=== PATIENT | female | born 1955 | race Caucasian/White ===

== ENCOUNTER 2019-05-25 12:53 | Observation (INO) ==
--- NOTE | 2019-05-25 13:43 | Diag Imaging Result Doc PS360 ---
EXAM: CT HEAD W/O CONTRAST HISTORY: ams TECHNIQUE: CT head without contrast COMPARISON: None. FINDINGS: No parenchymal hemorrhage. No epidural or subdural hematoma. No subarachnoid hemorrhage. Mild chronic microvascular ischemic changes. No mass identified on this noncontrasted exam. No hydrocephalus. No sinus opacification. IMPRESSION: No hemorrhage. Mild chronic ischemic changes. This exam was performed using automated exposure control, adjustment of mA or kV according to patient size, and/or use of iterative reconstruction technique. Electronically signed by David Ortiz 05/25/2019 1:40 PM
[2019-05-25 13:48] LABS: URINE SOURCE CLEAN CATCH
--- NOTE | 2019-05-25 13:50 | EKG Report ---
Test Performed on : 05/25/2019 1:40:55 PM Test Reason : AMS Blood Pressure : / mmHG Vent. Rate : 066 BPM Atrial Rate : 066 BPM P-R Int : 138 ms QRS Dur : 078 ms QT Int : 402 ms P-R-T Axes : 008 025 011 degrees QTc Int : 421 ms Normal sinus rhythm. Normal ECG No previous ECGs available Unconfirmed Result
[2019-05-25 13:54] LABS: BILIRUBIN URINE NEGATIVE (NEGATIVE); BLOOD URINE NEGATIVE (NEGATIVE); COLOR STRAW; GLUCOSE URINE TRACE mg/dL (NEGATIVE); KETONE URINE NEGATIVE (NEGATIVE); LEUKOCYTES URINE NEGATIVE (NEGATIVE); NITRITE URINE NEGATIVE (NEGATIVE); PROTEIN URINE TRACE mg/dL (NEGATIVE); SP GRAVITY URINE 1.011; TURBIDITY URINE CLEAR (CLEAR); UR EPITHELIAL CELLS <10 /HPF (<10); URINE BACTERIA NEGATIVE /HPF; URINE RBC <10 /HPF (<10); URINE WBC <10 /HPF (<10); UROBILINOGEN URINE NORMAL (NORMAL)
[2019-05-25 13:56] LABS: EOS# 0.01 X1000 (0.0-0.7); EOS% 0.2 % (0.0-10.0); HEMATOCRIT 35.4 % (37.0-47.0); HEMOGLOBIN 11.9 g/dL (12.0-16.0); IMM GRAN# 0.03 X1000 (0.0-0.04); IMM GRAN% 0.6 % (0.0-0.5); LYMPH% 8.2 % (20.5-51.1); MCH 33.6 PG (27-31); MCHC 33.6 g/dL (33-37); MONO# 0.39 X1000 (0.11-0.59); MPV 10.4 FL (7.4-10.4); NEUT# 4.02 X1000 (1.4-6.5); PLT 243 X1000 (130-400); RBC 3.54 XMIL (4.2-5.4); RDW 15.2 % (11.5-14.5); WBC 4.85 X1000 (4.8-10.8)
[2019-05-25 14:07] LABS: AGAP 14; ALB/GLOB RATIO 1.4; ALBUMIN 3.9 g/dL (3.5-5.0); ALKALINE PHOSPHATASE 81 U/L (32-104); BUN 15 mg/dL (8-22); CHLORIDE 99 mmol/L (98-107); CK PROFILE 40 U/L (24-173); COSMO 278; CREATININE 0.7 mg/dL (0.5-0.9); ESTIMATED GFR > 60; GLUCOSE 120 mg/dL (70-104); GOT 22 U/L (10-30); GPT 12 U/L (10-36); POTASSIUM 4.1 mmol/L (3.5-5.1); SODIUM 138 mmol/L (136-145); TCO2 25 mmol/L (25-35); TOTAL BILIRUBIN 0.36 mg/dL (0.20-1.00); TOTAL PROTEIN 6.6 g/dL (6.3-8.3)
[2019-05-25 14:11] LABS: INR 1.09
[2019-05-25 14:12] LABS: PTT 26.6 Seconds (22.3-41.8)
--- NOTE | 2019-05-25 14:40 | Diag Imaging Result Doc PS360 ---
CHEST-PORTABLE - 05/25/2019 INDICATION: ams COMPARISON: 02/24/2019 FINDINGS: There is essentially identical appearing complete opacification of the majority of the left lung. This is about 75% opacified. Likely a large pleural effusion. The right lung is clear. No mediastinal shift. Heart size is top normal. IMPRESSION: Significant opacification of the left lung identical to prior. Electronically signed by Dash Garcia 05/25/2019 2:38 PM
--- NOTE | 2019-05-25 15:30 | PROVIDER DOCUMENTATION ---
This chart was entered by Stephani Albarado Scribe, acting as scribe for Phil Willingham MD. HPI-General Adult - General Chief Complaint: Altered Mental Status Stated Complaint: CANCER PT-DR TOSCANO SENT HER Time Seen by Provider: 05/25/19 13:46 Source: patient, family () Allergies/Adverse Reactions: Patient Allergies Allergy/AdvReac Type Severity Reaction Status Date / Time No Known Allergies Allergy Verified 05/25/19 14:06 Home Medications: Home Medication List Medication Instructions Recorded Confirmed Last Taken Type Amlodipine [Norvasc] 10 mg PO DAILY 01/21/13 05/25/19 01/21/19 08:30 History Alprazolam 0.25 mg PO DAILY 02/21/14 05/25/19 01/20/19 22:00 History Lisinopril/Hydrochlorothiazide 1 each PO BID 03/04/16 05/25/19 01/21/19 08:30 History [Lisinopril-Hctz 20-12.5 mg Tab] Rivaroxaban [Xarelto] 10 mg PO DAILY 03/04/16 05/25/19 01/20/19 17:30 History Palbociclib [Ibrance] 125 mg PO DAILY 01/21/19 05/25/19 01/20/19 17:30 History - History of Present Illness -Gen Adult Nature of Presenting Problems: 63 yowf presents to the ed with onset of confusion, nausea, vomiting and BOYKIN this am about 1030. pt went to rehab for shoulder and once home was fine at 1000am then sudden onset of sx at 1030am. pt is seeing dr toscano oncology for breast cancer that mets to lung fluid. pt is having problem with short term memory and still feels fatigued. pt neuro is intact and has had decreased appetite. Location of Pain/Injury: reports: abdomen, generalized (fatigue) Quality of Pain: reports: cramping (abdominal) Severity: reports: moderate Onset/Duration: reports: this morning (1030am) Timing: reports: still present Context/Activities at Onset: reports: light activity Modifying Factors: improves with: nothing Associated Symptoms: reports: fatigue, headaches, malaise, muscle aches, nausea, vomiting, weakness. denies: back/neck pain, chest pain, diarrhea, dizziness, fever/chills, shortness of breath, syncope Similar Symptoms Previously?: Yes Recently seen or treated by another doctor?: Yes (dr toscano oncology) Review of Systems - Adult - REVIEW OF SYSTEMS - ADULT Constitutional: reports: see HPI, fatique. denies: chills, fever Eyes: reports: no symptoms reported Ears, Nose, Mouth & Throat: reports: no symptoms reported Cardiovascular: denies: chest pain, palpitations, syncope Respiratory: denies: cough, shortness of breath, wheezing Gastrointestinal: reports: see HPI, abdominal pain, nausea, poor appetite, vomiting Genitourinary: reports: no symptoms reported Musculoskeletal: reports: see HPI, muscle aches. denies: back pain, neck pain Integumentary: reports: no symptoms reported Neurological: reports: see HPI, headache/migraines, other (confusion). denies: ataxia, dizziness/vertigo, numbness, paresthesia, seizure, slurred speech Psychiatric: reports: no symptoms reported Endocrine: reports: no symptoms reported Hematologic/Lymphatic: reports: no symptoms reported Allergic/Immunologic: reports: no symptoms reported All Other Systems: Reviewed and Negative Past History - Adult - PAST MEDICAL HISTORY-ADULT Review of Records: reports: Old Records Reviewed, Nursing Assessment Review, Medications Reviewed, Social history reviewed & non-contributory. Major Childhood Illnesses: reports: denies history Cardiovascular: reports: blood clots, HTN Respiratory: reports: denies history Gastrointestinal: reports: denies history Obstetrical/Gynecological: reports: denies history Genitourinary: reports: denies history Musculoskeletal: reports: denies history Hand Dominance: Right Handed Neurological: reports: headaches/migraines Psychiatric: reports: anxiety Endocrine/Immune: reports: denies history Other Conditions: reports: other cancer (breast) - PRIOR SURGERIES/PROCEDURES Surgical/Procedure History: reports: breast - IMMUNIZATION STATUS Childhood Immunizations: See Nurse Assessment Flu Vaccine: See Nurse Assessment - FAMILY HISTORY Family History: reviewed, not pertinent - SOCIAL HISTORY Smoking: denies Substance Use: denies Living Situation: family Physical Exam-General - PHYSICAL EXAM-ADULT Initial Vital Signs Reviewed: Yes - CONSTITUTIONAL General Appearance: alert, mild distress - EYES Eyes: PERRL/EOMI, pink conjunctivae - HEAD, EARS, NOSE, MOUTH & THROAT HENMT: dental decay. negative: moist mucous membranes (dry) - NECK Neck: non-tender, full range of motion, supple, normal inspection - RESPIRATORY Respiratory: chest non-tender, lungs clear, normal breath sounds - CARDIOVASCULAR Cardiovascular: normal peripheral pulses, regular rate, rhythm - GASTROINTESTINAL (ABDOMEN) Abdominal Exam: normal bowel sounds, non tender, soft - LYMPHATIC Lymphatic: no adenopathy - MUSCULOSKELETAL Back Exam: normal inspection, no CVA tenderness, no vertebral tenderness Extremity: normal range of motion, non-tender, no pedal edema, no calf tenderness, pelvis stable - SKIN Integumentary: warm/dry, pallor - NEUROLOGIC Neurologic: grossly normal - PSYCHIATRIC Psych/Mental Status: other (short term memory is altered) Progress - PLAN OF CARE/RESULTS Progress/Plan/Lab Results: Vital Signs - 8 hr 05/25/19 12:56 Temperature 97.9 F Pulse Rate 71 Respiratory Rate 18 Blood Pressure 179/114 O2 Sat by Pulse Oximetry 95 Laboratory Results - last 24 hr 05/25/19 05/25/19 05/25/19 13:08 13:25 13:26 WBC 4.85 RBC 3.54 L Hgb 11.9 L Hct 35.4 L MCV 100.0 H MCH 33.6 H MCHC 33.6 RDW Std Deviation 15.2 H Plt Count 243 MPV 10.4 Immature Gran % (Auto) 0.6 H Neut % (Auto) 83.0 H Lymph % (Auto) 8.2 L [place] % (Auto) 8.0 Eos % (Auto) 0.2 Baso % (Auto) 0.0 Immature Gran # (Auto) 0.03 Neut # (Auto) 4.02 Lymph # (Auto) 0.40 L [place] # (Auto) 0.39 Eos # (Auto) 0.01 Baso # (Auto) 0.00 POC Glucose 106 H Urine Source CLEAN CATCH Urine Color STRAW Urine Turbidity CLEAR Urine pH 8.0 Ur Specific [place] 1.011 Urine Protein TRACE A Ur Glucose (Stick) TRACE Ur Ketones (Stick) NEGATIVE Urine Blood NEGATIVE Urine Nitrite NEGATIVE Urine Bilirubin NEGATIVE Urobilinogen Dipstick NORMAL Urine Leukocytes NEGATIVE Urine WBC (Auto) <10 Urine RBC (Auto) <10 U Epithel Cells (Auto) <10 Urine Bacteria (Auto) NEGATIVE Orders Category Date Time Status Cardiac Monitoring DIRECTED Care 05/25/19 13:17 Active Finger Stick Blood Sugar (ED) DIRECTED Care 05/25/19 13:17 Active Oxygen Therapy- ED Nursing DIRECTED Care 05/25/19 13:17 Active Saline Loc NOW Care 05/25/19 13:17 Active CHEST-PORTABLE [RAD] Stat Exams 05/25/19 13:[address] HEAD W/O CONTRAST [CT] Stat Exams 05/25/19 13:18 Completed CBC WITH ELECTRONIC DIFF [HEME] Stat Lab 05/25/19 13:25 Completed CK PROFILE [SP CHEM] Stat Lab 05/25/19 13:25 Received COMPREHENSIVE METABOLIC PANEL [CHEM] Stat Lab 05/25/19 13:25 Received PROTIME WITH INR [COAG] Stat Lab 05/25/19 13:25 Received PTT [COAG] Stat Lab 05/25/19 13:25 Received TROPONIN T Stat Lab 05/25/19 13:25 Received URINALYSIS [URINALYSIS] Stat Lab 05/25/19 13:08 Completed Altered Mental Status Stat Oth 05/25/19 13:17 Ordered EKG [EKG] Stat Ther 05/25/19 13:17 Draft Result Diagrams: 05/25/19 13:25 05/25/19 13:25 - REASSESSMENT Reassessment #1 Time Reassessed: 14:54 (pt is resting in bed) Status: improving - EKG 1 Time of EKG reading by physician:: 13:40 EKG Read and Signed by:: Phil Willingham EKG Interpretation (*Must complete 3 of following elements*): Normal Rate: 66 Rhythm: nsr [place]: normal QRS: normal MO Interval: normal ST Wave: normal - XRAY 1 XRAY: Bilateral XRAY Study: Chest Impression: See EMR Report (CHEST-PORTABLE - 05/25/2019 INDICATION: ams COMPARISON: 02/24/2019 FINDINGS: There is essentially identical appearing complete opacification of the majority of the left lung. This is about 75% opacified. Likely a large pleural effusion. The right lung is clear. No mediastinal shift. Heart size is top normal. IMPRESSION: Significant opacification of the left lung identical to prior. Electronically signed by Dash Garcia 05/25/2019 2:38 PM 05/25/19 5520 Interpreting Physician: Dash Garcia MD Dictated Date/Time: 05/25/19 5798 cc: Phil Willingham MD; Eric Driver MD) - CT/MRI 1 CT Study: Head Impression: See EMR Report (EXAM: CT HEAD W/O CONTRAST HISTORY: ams TECHNIQUE: CT head without contrast COMPARISON: None. FINDINGS: No parenchymal hemorrhage. No epidural or subdural hematoma. No subarachnoid hemorrhage. Mild chronic microvascular ischemic changes. No mass identified on this noncontrasted exam. No hydrocephalus. No sinus opacification. IMPRESSION: No hemorrhage. Mild chronic ischemic changes. This exam was performed using automated exposure control, adjustment of mA or kV according to patient size, and/or use of iterative reconstruction technique. Electronically signed by David Ortiz 05/25/2019 1:40 PM 05/25/19 1340 Interpreting Physician: David Ortiz MD Dictated Date/Time: 05/25/19 1339 cc: Phil Willingham MD; Eric Driver MD) - CONSULTS/PCP/HOSPITALIST Notification #1 *Consult/PCP/Hospitalist*: hospitalist Time Discussed: 15:27 Consult Disposition: Admit Departure - Departure Date of Disposition Decision: 05/25/19 Time of Disposition Decision: 15:25 DIAGNOSIS: Altered mental status Disposition: ADMITTED INPATIENT 09 Certified Medical Emergency: Emergent Condition: Good Referrals and Follow-Ups: Eric Driver MD [Primary Care Provider] - - Critical Care Note This patient required my direct & personal management of CC.: No Attestation - Physician/ TOMMY Attestation Patient care was provided by Advanced Practice Provider:: No The physician spent face to face time with patient:: Yes Advanced Practice Provider documentation review:: Supervising physician onsite and consulted in the evaluation and care of this patient. The physician did have a face to face encounter with the patient. This chart was documented by the indicated scribe, (Stephani Albarado Scribe) and accurately reflects the services I performed and decisions made by me, Phil Willingham MD, as attested by the provider's signature.
[2019-05-25] MEDS ORDERED: NORCO-7.5 PO PRN (16:01)
[2019-05-25] MEDS ORDERED: PHENERGAN PO PRN (16:01)
[2019-05-25] MEDS ORDERED: LOVENOX SUBQ SCH (16:15)
[2019-05-25 16:32] LABS: UR AMPHETAMINES QUAL NONE DETECTED (NONE DETECT); UR BARBITUATES QUAL NONE DETECTED (NONE DETECT); UR BENZODIAZEPIN QUAL NONE DETECTED (NONE DETECT); UR CANNABINOIDS QUAL NONE DETECTED (NONE DETECT); UR COCAINE QUAL NONE DETECTED (NONE DETECT); UR METHADONE QUAL NONE DETECTED (NONE DETECT); UR OPIATES QUAL NONE DETECTED (NONE DETECT); UR OXYCODONE QUAL NONE DETECTED (NONE DETECT); UR PCP QUAL NONE DETECTED (NONE DETECT)
[2019-05-25] MEDS: NS 1,000 ML IV SCH (17:49)
[2019-05-25] MEDS ORDERED: NS 1,000 ML ONE (17:57)
[2019-05-25] MEDS ORDERED: XARELTO PO SCH (18:00)
--- NOTE | 2019-05-25 19:16 | HISTORY AND PHYSICAL ---
PRIMARY CARE PROVIDER: Dr. Morataya. PRIMARY ONCOLOGIST: Dr. Huddleston. PRIMARY DISC PAD KNOCKOUT WORKER: Dr. Dick. PRIMARY ORTHOPEDIC: Dr. Yoder. CHIEF COMPLAINT: Spell of vomiting, dizziness, aura, and disorientation this morning. HISTORY OF PRESENT ILLNESS: Ms. 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 Yoder, where she is receiving steroids for that and physical therapy. She states that today she got up about 8 o'clock this morning, spoke to 1 of her friends on the phone for which she does not remember at this time that she did, ate breakfast, and then went to rehab. She went for an evaluation, did not actually do full physical therapy at that time. She came home and was not feeling well. She laid down, this was around 10 a.m. She had gotten back up. The found her vomiting. She was dizzy, having auras, and some disorientation. The dizziness, auras, and the vomiting subsided but the disorientation continued. There was no weakness or slurred speech. She did not have drooping of the mouth. She was brought here for further evaluation. There were no significant abnormalities on the laboratory data. Her imaging included a head CT which showed chronic ischemic changes but no acute findings and so far her memory is starting to clear up. We will get an MRI to further evaluate for any risk of stroke. PAST MEDICAL HISTORY: 1. 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 2. Left DVT and pulmonary emboli. She is on Xarelto for that. This was diagnosed in 01/2013. 3. Migraines. 4. Bilateral shoulder bursitis. PAST SURGICAL HISTORY: 1. Tonsillectomy. 2. Mastectomy. 3. Mastopexy. 4. Transverse rectus abdominis musculocutaneous flap procedure. 5. Left thoracentesis. SOCIAL HISTORY: Denies tobacco, alcohol or illicit drug use. Lives at home with her . FAMILY HISTORY: Mother had DVTs in her legs, hypertension, and a permanent pacemaker. Father had coronary disease and diabetes. ALLERGIES: No known drug allergies. HOME MEDICATIONS: 1. Xanax 0.25 mg p.o. daily. 2. Ibrance 125 mg p.o. daily. 3. Lisinopril/hydrochlorothiazide 20/12.5 mg p.o. twice daily. 4. Norvasc 10 mg p.o. daily. 5. Xarelto 10 mg p.o. every evening around 6 p.m. REVIEW OF SYSTEMS: Fourteen-point review of systems are complete and all were negative except for those mentioned above in HPI. She denies headache at this time. PHYSICAL EXAMINATION: VITAL SIGNS: Temperature 98.1 degrees, heart rate 70, respiratory rate 20, blood pressure 168/92, O2 saturation 98% on room. GENERAL: Ms. Genet Christian is a 63-year-old female. She is in no acute distress. She is able to answer questions appropriately. HEENT: Atraumatic, normocephalic. Pupils equal, round, reactive to light. Extraocular movements intact. Mucous membranes are dry. NECK: Trachea midline. CARDIOVASCULAR: S1, S2. Regular rate and rhythm. No rubs, gallops, murmurs. No lower extremity edema. There are +2 dorsalis and radial pulses. Negative JVD or carotid bruits. PULMONARY: Clear to auscultate. Decreased in the left base. No accessory muscle use or work of breathing noted. She is tolerating room. GI: Soft, nontender, nondistended. Positive bowel sounds x4. EXTREMITIES: Moves all extremities equally with full range of motion. NEURO: A O x3. Follows commands. Sensory is intact. SKIN: Warm, dry, intact. LABORATORY DATA: White blood cells 4000, hemoglobin 11, hematocrit 35, platelet count 243,000. INR is 1.09, PTT is 26.6. Sodium 138, potassium 4.1, BUN 15, creatinine 0.7, glucose 120, calcium 9.0, bilirubin 0.36, AST 22, ALT 12. CK 40. Troponin less than 0.01. Albumin 3.9. Urinalysis, trace protein. Urine drug screen negative. IMAGING: Chest x-ray: 75% large left pleural effusion without shift. Right lung is clear. Head CT: No hemorrhage. Mild chronic ischemic changes. EKG: Normal sinus rhythm, rate 66, QTc is 421. ASSESSMENT/PLAN: 1. Transient ischemic attack versus cerebrovascular accident versus even a possible seizure. Head CT did not show anything acute but we are going to follow up on a brain MRI with and without contrast tomorrow. We will consult Dr. Acosta for any further recommendations and do every 4 hour neuro checks. 2. History of breast cancer, recurrent, followed by Dr. Huddleston. Her Ibrance has been resumed. She will have to take that from home. 3. History of deep vein thromboses and pulmonary embolism back in 2012. Will continue the Xarelto. 4. Hypertension. Continue Norvasc. 5. Anxiety history. Continues Xanax. 6. Bilateral shoulder bursitis. She is followed by Dr. Yoder for this. Apparently getting physical therapy for it and she has been on steroids at home for this as well. 7. Large left pleural effusion, about 75%. It looks like back in 2015 she had a thoracentesis performed by Dr. Dick. Currently, she is not having any symptoms of it. She is asymptomatic. She is tolerating room air and she is not short of breath. So, could consider pulmonary consult if she starts having respiratory issues or even another thoracentesis. Dictated by SHEA Clifton for Darren Pruitt MD cc: SHEA Clifton MD I have seen and examined Ms Christian who presents with global amnesia of unclear etiology. I have also reviewed her labs and imaging studies. I agree with the HPI and the plan reflects my opinion discussed with the LEGISLATIVE ANALYST. RKQ. BOOTH
[2019-05-26] MEDS: NS 1,000 ML IV SCH (05:13)
[2019-05-26] MEDS ORDERED: XANAX PO PRN (08:28)
[2019-05-26 08:35] LABS: BASO# 0.01 X1000 (0.0-0.2); BASO% 0.3 % (0.0-0.8); EOS# 0.05 X1000 (0.0-0.7); EOS% 1.4 % (0.0-10.0); HEMOGLOBIN 11.9 g/dL (12.0-16.0); IMM GRAN# 0.03 X1000 (0.0-0.04); IMM GRAN% 0.9 % (0.0-0.5); LYMPH% 25.6 % (20.5-51.1); MCH 33.6 PG (27-31); MCHC 33.1 g/dL (33-37); MCV 101.7 FL (81-99); MONO# 0.53 X1000 (0.11-0.59); MONO% 15.1 % (1.7-9.3); MPV 10.3 FL (7.4-10.4); NEUT% 56.7 % (42.2-75.2); PLT 226 X1000 (130-400); RBC 3.54 XMIL (4.2-5.4); RDW 15.8 % (11.5-14.5); WBC 3.52 X1000 (4.8-10.8)
[2019-05-26] MEDS ORDERED: PATIENT'S OWN MED PO SCH ×2 (09:00→17:00)
[2019-05-26] MEDS ORDERED: PRINIVIL PO SCH (09:00)
[2019-05-26] MEDS ORDERED: XANAX PO SCH (09:00)
[2019-05-26] MEDS ORDERED: NORVASC PO SCH (09:00)
[2019-05-26 09:01] LABS: AGAP 12; ALB/GLOB RATIO 1.3; ALBUMIN 3.4 g/dL (3.5-5.0); ALKALINE PHOSPHATASE 79 U/L (32-104); BUN 14 mg/dL (8-22); CALCIUM 8.4 mg/dL (8.8-10.2); CHLORIDE 104 mmol/L (98-107); COSMO 283; CREATININE 0.7 mg/dL (0.5-0.9); ESTIMATED GFR > 60; GLUCOSE 85 mg/dL (70-104); GOT 22 U/L (10-30); GPT 16 U/L (10-36); POTASSIUM 3.6 mmol/L (3.5-5.1); SODIUM 142 mmol/L (136-145); TCO2 26 mmol/L (25-35); TOTAL BILIRUBIN 0.38 mg/dL (0.20-1.00); TOTAL PROTEIN 6.1 g/dL (6.3-8.3)
[2019-05-26 09:33] LABS: IRON SATURATION 19 %; TIBC 174 ug/dL; TOTAL IRON 33 ug/dL (49-151); UNBOUND IRON 141 ug/dL (112-346)
[2019-05-26 09:57] LABS: FERRITIN 218 ng/mL (13-150)
--- NOTE | 2019-05-26 10:36 | CONSULTATION ---
DATE OF CONSULTATION: 05/26/2019 HISTORY OF PRESENT ILLNESS: Ms. Christian had an episode of memory gap yesterday. History from the patient is that she remembers dressing, preparing for a physical therapy appointment later in the morning. She next remembers bringing her to the hospital. She does not have clear memory for events until last night. reports she prepared as usual for her physical therapy, apparently drove herself uneventfully, completed her session with therapy and returned home uneventfully. She visited with him briefly after therapy and seemed well. Soon after that, discovered her in the bathroom vomiting. She seemed disoriented. She asked questions repeatedly. For example, she asked about the location of her purse and was told where her purse was, and then several minutes later would ask that again. She is conscious of being told not to have IVs in 1 arm and she told that repeatedly to the staff after arrival in the hospital. Speech was not significantly slurred. There was no apparent language deficit. She seemed to recognize and location. reports she told him she was having one of her visual "auras" yesterday when he found her in the bathroom vomiting. She did not report headache through the day yesterday. She has a past history of likely visual migraine without headache. She has 20- 40 minute episodes of "waves" in the left visual field progressing across to the right field and then resolving. Sometimes, there is dull soreness over the right side of the head the following day, but she does not have any headache immediately after the symptoms. She has never had permanent vision disturbance. She has never had language difficulty, confusion, or cognitive deficit with these episodes. Episodes were as often as several in a week at some points in the past, but last episode was about a year ago. There is past history of breast cancer with apparent pleural metastasis. I do not have details of that. She has hydrocodone with infrequent use. She has alprazolam 0.25 mg at bedtime with no recent missed doses. Caffeine intake is usually 1 cup of regular coffee and 1 cup of decaf daily, and she had her usual caffeine yesterday morning. She has been afebrile here. Heart rate has been 60s-70s. Systolic blood pressure was initially 180s, later 140s. Noncontrast CT of the head was unremarkable. Brain MRI is planned. Chemistry showed blood sugar 120, nothing else remarkable. There is anemia. We did not have urine drug screen this admission. On exam, Ms. Christian is awake, alert, attentive and appropriate. She is cheerful and pleasant now. Speech is not dysarthric. Language function is intact on careful bedside testing. Except for memory gap yesterday, she is completely cognitively intact. She scored 30 of 30 on bedside cognitive testing. She discussed recent news with accurate detail. Head and neck are unremarkable. Visual kaufman are full tested grossly by confrontational finger counting. Extraocular movements are full. Facial motility is symmetric. Facial sensation is intact to pinprick and light touch testing. Gag is intact. Tongue is midline. She can hear. She has some discomfort in the shoulders but good shoulder girdle power. Strength is normal in the arms and legs. She did well on [id number] testing bilaterally. She reports good pinprick appreciation symmetrically over the hands and feet. Proprioception is normal at the great toe MTP joint bilaterally. I did not test her gait. IMPRESSION: 1. Transient global amnesia. This may be associated with migraine, possibly confusional migraine. I do not see evidence of increased intracranial pressure, intracranial mass, other association of this episode with her cancer. 2. 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 3. Cancer. I do not have any urgent suggestion. If she has more episodes, we might treat her with migraine preventative medicine. If MRI findings are significant, we might need to reconsider neurologic management. If MRI is unremarkable, I do not have anything further from neurologic standpoint. Okay with me for discharge whenever ready. Thanks for asking Neurology to see Ms. Christian. cc: MD LEOBARDO Escobar III
--- NOTE | 2019-05-26 10:54 | PROGRESS NOTE ---
DATE: 05/26/2019 SUBJECTIVE: This morning, Ms. Christian refers to be doing a whole lot better. Mentation has completely recovered. She remembers everything. She does have a gap where she does not remember what happened to her yesterday, but otherwise this morning, she is doing well. OBJECTIVE: Vital Signs: Blood pressure is 155/90, pulse of 80, respirations 16, temperature is 98 degrees. General: Ms. Christian is a 63-year-old female. She is in bed. No distress. HEENT: Mucosa is pink and moist. Anicteric. Acyanotic. Neck: Supple. Chest: Clear to auscultation. No crepitations. No rhonchi. Cardiovascular: Regular rate and rhythm. No murmurs, no rubs, no gallops. GI: Abdomen is soft, nontender. Bowel sounds are present. KNOTTER: The patient is awake, alert, oriented x4. There is no focal neurological deficit. IMAGING AND LABORATORY DATA: Hemoglobin is 11.9, that has no change. MCV is slightly elevated. Platelet count is normal. Chemistry is completely within normal range. Iron studies are normal. B12 and TSH are normal. We are still pending the folate. Initial CT scan of the head showed mild chronic ischemic changes. ASSESSMENT: 1. Transient episode of amnesia. Etiology is unclear. The patient's mentation and memory seems to have come back. An initial head CT scan was normal. We are pending an MRI. The patient is also pending Neurology evaluation. 2. Mild clinical volume depletion on presentation, improved. 3. Macrocytosis. Noted. 4. 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 The patient is on Ibrance, and follows up with Dr. Huddleston. 5. Hypertension. We will start the patient back on her medications. 6. History of atypical complex migraines. Unsure if her neurological presentation was also due to another episode of a migraine attack. In general, Ms. Christian is doing a lot better. Mentation has improved. Memory is back. We are concerned because of her history of recurrent breast cancer with metastasis to the lungs, if there is any issue or if there is any micrometastasis to the brain. We are doing an MRI of the brain. The patient also has a paraneoplastic workup done, which she will review the results with Dr. Huddleston. From a clinical standpoint, she seems to be doing a whole lot better. If her MRI is okay, we will be discharging her later today. cc: Darren Pruitt MD MTDD
[2019-05-26] MEDS ORDERED: FOLIC ACID PO SCH (13:15)
[2019-05-26 13:59] VITALS: BP 155/90
--- NOTE | 2019-05-26 13:59 | Diag Imaging Result Doc PS360 ---
MRI BRAIN W/WO CONTRAST - 05/25/2019 INDICATION: AMS. hx breast CA to lung. r/o mets to brain COMPARISON: Head CT 05/25/2019 FINDINGS: There is no area of restricted diffusion. The ventricles and sulci are normal in size and contour. No intracranial mass or hemorrhage. No abnormal contrast enhancement. There is moderately advanced, scattered hyperintensity of the cerebral white matter on the T2 and FLAIR images. This is nonspecific but most compatible with chronic microvascular ischemia. Midline structures are unremarkable. IMPRESSION: Moderately advanced chronic microvascular disease. No suspicious findings seen. Electronically signed by Dash Garcia 05/26/2019 1:57 PM
--- NOTE | 2019-05-27 02:06 | DISCHARGE SUMMARY ---
ADMISSION DATE: 05/25/2019 DISCHARGE DATE: 05/26/2019 DISPOSITION: Home. FOLLOW-UP: 1. Dr. Morataya. 2. Dr. Huddleston. 3. Dr. Acosta. CONSULTATION DURING THIS ADMISSION: Neurology was consulted, patient was seen by Dr. Acosta. INVASIVE PROCEDURES DURING ADMISSION: None. IMAGING STUDIES OF SIGNIFICANCE: 1. A chest x-ray shows significant opacification of the left lung identical to prior. 2. CT scan of the head showed mild chronic ischemic changes. 3. An MRI of the brain showed moderately advanced chronic microvascular disease. No suspicious findings. ADMISSION DIAGNOSES: 1. Transient ischemic attack versus possible seizures. 2. History of breast cancer. 3. Hypertension. DIAGNOSES AT TIME OF DISCHARGE: 1. Transient episode of amnesia, etiology unclear, resolved during the hospital course. 2. Clinical volume depletion, stable. 3. Macrocytosis with folate deficiency. 4. History of recurrent metastatic breast cancer to left lung. 5. Moderate to large left pleural effusion secondary to metastatic breast cancer. 6. Hypertension. 7. History of migraine. PRESENTING COMPLAINT: Dizziness, disorientation, and aura. HISTORY OF PRESENTING COMPLAINT: Ms Christian is a 63-year-old female who has recurrent left breast cancer status post mastectomy, was recently also found to have a recurrence of the cancer into her left lung. Patient follows up with Dr. Huddleston, gets daily Ibrance, and also I think every monthly IV chemo. She came to the emergency department because she had gone to do physical therapy because of some bilateral bursitis, and could not remember anything, so she called her oncologist's office and was advised to come to the emergency room, where we were consulted. Patient got admitted to the medical floor. She seems to have recovered from her memory issue overnight. An MRI of the brain did not show any acute pathology, and Neurology was consulted. The patient was seen by Dr. Acosta, whose impression was transient global amnesia, and that this could be associated with migraine or possible confusional migraine, but otherwise, no emergent recommendations. The patient was also found to have low folate and was supplemented. Of concern is that Ms. Christian could potentially also have a paraneoplastic neurological manifestation of her breast cancer, so a paraneoplastic workup was sent to [facility] and we are still pending the report results at the time of the discharge. She has been advised to follow up with Dr. Huddleston. This afternoon, Ms. Christian is doing a lot better. She remembers everything. We think she is stable for discharge. Her was at the bedside at the time of this encounter, and the tells me that the is back to her baseline. All the discharge instructions have been discussed with them. PHYSICAL EXAMINATION: Vital signs: Currently, blood pressure 155/90, pulse of 80, temperature is 97.6 degrees. Patient is saturating 98% on room air. Physical exam is unremarkable. TIME SPENT: The time spent for the time spent for discharge is 35 minutes. cc: MD Gus Covington MD Eston G. Norwood III, MD
== END 2019-05-26 15:12 | disposition home or self-care (01) ==
LOC: ED 12:53 → 3N 16:26 → INTOOBSV 16:26 → 3N 05-26 10:56
PROVIDERS: ATTEND Internal Medicine
CPT/HCPCS: 70450; 70553; 71010; 71045; 80053; 80101; 80301; 80307; 80324; 80345; 80346; 80353; 80358; 80361; 80365; 81001; 82550; 82607; 82728; 82746; 82948; 83540; 83550; 83735; 83992; 84443; 84484; 85025; 85610; 85730; 93005; 97162; A9270; A9579; G0431; G0434; G0479; G0480; J7030; XXXXX